=== PATIENT | female | born 1995 | race Caucasian/White ===

== ENCOUNTER 2018-10-30 03:17 | Emergency (ER) | payer BC ==
[~2018-10-30] VITALS: Ht 152.4 cm; Wt 82.0 kg
[2018-10-30 03:30] VITALS: BP 117/76
== END 2018-10-30 05:20 | disposition home or self-care (01) ==
LOC: ED 04:14
DX: A08.4 Viral intestinal infection, unspecified (principal); Z90.49 Acquired absence of other specified parts of digestive tract
CPT/HCPCS: 36415; 80053; 81001; 83690; 84703; 85025; 87086; 99283; Q0162